=== PATIENT | male | born 1975 | race Caucasian/White ===

== ENCOUNTER 2019-12-12 05:37 | Outpatient (CLI) | payer OTHER ==
[~2019-12-12] VITALS: Ht 175 cm; Wt 79.5 kg
[2019-12-12] MEDS ORDERED: IBUP-1780 PO (13:07)
== END 2019-12-12 13:15 | disposition home or self-care (01) ==
LOC: PREOP 05:37
PROVIDERS: ATTEND Surgery
DX: Z01.818 Encounter for other preprocedural examination (principal)

== ENCOUNTER 2019-12-20 05:58 | Day surgery (SDC) | payer OTHER ==
[2019-12-20] VITALS (10 sets, daily range): BP systolic 106–132; BP diastolic 64–92
[~2019-12-20] VITALS: Ht 175 cm; Wt 79.5 kg
[~2019-12-20 05:58] MED LIST: IBUP-1780 PO
[2019-12-20] MEDS ORDERED: ceFAZolin INJECTION 1,000 MG in WATER (STERILE) FOR INJECTION 10 ML IV ONE (06:30)
[2019-12-20 06:38] LABS: BASOPHILS % (AUTO) 1 % (0-10); EOSINOPHILS # (AUTO) 0.2 10^3/uL (0.0-0.3); EOSINOPHILS % (AUTO) 3 % (0-10); HEMATOCRIT 42 % (40-54); HEMOGLOBIN 15.1 G/DL (13.3-17.7); LYMPHOCYTES # (AUTO) 1.7 X 10^3 (1.0-4.0); LYMPHOCYTES % (AUTO) 26 % (12-44); MEAN CORPUSCULAR HEMOGLOBIN 32 PG (25-34); MEAN CORPUSCULAR HGB CONC 36 G/DL (32-36); MEAN CORPUSCULAR VOLUME 90 FL (80-99); MEAN PLATELET VOLUME 10.4 FL (7.4-10.4); MONOCYTES # (AUTO) 0.6 X 10^3 (0.0-1.0); MONOCYTES % (AUTO) 9 % (0-12); NEUTROPHILS # (AUTO) 3.8 X 10^3 (1.8-7.8); NEUTROPHILS % (AUTO) 61 % (42-75); PLATELET COUNT 219 10^3/uL (130-400); RED CELL DISTRIBUTION WIDTH 11.9 % (10.0-14.5); WHITE BLOOD COUNT 6.3 10^3/uL (4.3-11.0)
[2019-12-20] MEDS ORDERED: CATHETER FLUSH 10 ML SYR IV PRN (07:00)
[2019-12-20] MEDS ORDERED: proPOfol 200 MG/20 ML (DIPRIVAN) VIAL IV ONE (07:07)
[2019-12-20] MEDS ORDERED: MIDAZOLAM 2 MG/2 ML (VERSED) VIAL ONE (07:07)
[2019-12-20] MEDS ORDERED: fentaNYL INJECTION 100 MCG/2 ML AMP ONE (07:07)
[2019-12-20] MEDS ORDERED: LIDOCAINE PF 2% 5 ML (XYLOCAINE) VIAL ONE (07:07)
[2019-12-20] MEDS ORDERED: SEVOFLURANE (ULTANE) 15 ML INHAL SOLN ONE ×5 (07:09→09:38)
[2019-12-20] MEDS ORDERED: DEXAMETHASONE 10 MG/ML (DECADRON) 1 ML VIAL ONE (07:09)
[2019-12-20] MEDS ORDERED: ONDANSETRON 4 MG/2 ML (SDV) Z0FRAN ONE (07:09)
[2019-12-20] MEDS ORDERED: ROCURONIUM 10 MG/ML 5 ML SYRINGE IV ONE (07:09)
[2019-12-20] MEDS ORDERED: BUP/EPI 0.5% 1:200,000 (SENSORCAINE) 30 ML VIAL ONE ×2 (07:13→08:50)
[2019-12-20] MEDS: LACTATED RINGERS 1,000 ML IV PRN ×2 (07:45→09:46)
--- NOTE | 2019-12-20 08:01 | Progress Note-Pre Operative ---
Pre-Operative Progress Note H&P Reviewed The H&P was reviewed, patient examined and no changes noted. Date Seen by Provider: Dec 20, 2019 Time Seen by Provider: 07:42 Date H&P Reviewed: Dec 20, 2019 Time H&P Reviewed: 07:42 Pre-Operative Diagnosis: umbilical, right inguinal hernia CASE TAVARES DO Dec 20, 2019 08:01
--- NOTE | 2019-12-20 09:53 | Progress Note-Post Operative ---
Post-Operative Progess Note Surgeon (s)/Reinforcing Bar Setter (s) Surgeon CASE TAVARES DO Reinforcing Bar Setter: Dr. Tucker to assist in retraction dissection and closure. Pre-Operative Diagnosis umbilical, right inguinal hernia Post-Operative Diagnosis incarcerate umbilical hernia, right inguinal hernia, right cord lipoma Procedure & Operative Findings Date of Procedure 12/20/19 Procedure Performed/Findings lap incarcerated umbilical hernia repair, open right inguinal hernia repair with mesh and excision of cord lipoma. PROCEDURE: lap incarcerated umbilical hernia repair, open right inguinal hernia repair with mesh and excision of cord lipoma. COMPLICATIONS: None. INDICATIONS: The patient is a 44, male with an umbilical and right inguinal hernia, which has continued to increase in size and cause discomfort. The patient was explained the risk and benefits of the procedure and wished to proceed with the procedure. Consent was signed on the chart. DESCRIPTION OF PROCEDURE: The patient was taken into the operating suite, prepped and draped in sterile fashion. Surgical pause was performed. Local anesthetic was infiltrated in left upper quadrant. A 11 blade scalpel was used to make a small skin incision. Cautery was used to dissect down to the fascia, which was then scored and divided the muscle, went through the posterior sheath and a balloon trocar was inserted into the abdomen. The abdomen was then insufflated. Incarcerated umbilical hernia and right inguinal hernia is present. A 5 mm trocar was placed in the right lower quadrant and a 5 mm trocar was placed in left lower quadrant. Using cautery and endoscisors the umbilical hernia contents were dissecetd free and removed. 4.5 inch Echo Ventralight mesh was then inserted in the abdomen grabbed through the stab incision. The balloon was inflated on the mesh. Circumferential tacks were placed with a SecureStrap Tacker. The balloon was then removed and inner crown was created as well. The mesh was tacked with pressure being decreased. The 12 mm fascial defect was then closed using 0 Vicryl. The abdomen was then desufflated,the trocars were removed. The skin was then closed using 4-0 Monocryl in a running subcuticular fashion. Local anesthetic was infiltrated in the right lower quadrant. Incision was made and cautery used to dissect down to the external oblique, which was then opened down through the external ring. The spermatic cord was then dissected around. A Tulio drain was placed around it and there was no direct defect present. A indirect hernia present and cord lipoma. which was then dissected off of spermatic cord. The hernia sac opened and had fat that was incorporated into sac and could not be dissected off. The sac was then closed with vicryl and the sac and contents were reduced back into the abdominal cavity and the defect was closed with 0- vicryl. Using ProGrip mesh, this was secured at Lit's ligament and then incorporated around the spermatic cord and placed under the external oblique. Hemostasis was achieved. Wound irrigated and suctioned. The external oblique was then closed recreating the external ring and then the subcutaneous tissues were then reapproximated using 3-0 Vicryl and skin was then closed using 4-0 Monocryl in a subcuticular fashion. The abdomen was then washed and dried and Skin Affix was placed over the incision. The patient tolerated procedure well without any complications and taken to recovery room in stable condition. Anesthesia Type gen Estimated Blood Loss Estimated blood loss (mL): min Specimens/Packing Specimens Removed umbilical hernia contents CASE TAVARES DO Dec 20, 2019 09:53
[2019-12-20] MEDS ORDERED: DOCU-143 PO (09:56)
[2019-12-20] MEDS ORDERED: HYDR-34 PO (09:56)
--- NOTE | 2019-12-20 09:57 | Discharge Inst-Simple/Standard ---
Discharge Inst-Standard Discharge Medications New, Converted or Re-Newed RX: RX on Chart Patient Instructions/Follow Up Plan of Care/Instructions/FU: 2-3 weeks Jackie Activity as Tolerated: No Discharge Diet: Regular Diet Other Inst to Patient Follow up Appt: Make appointment for 2 week. Instructions: No lifting greater than 10 pounds. No strenuous activity. May shower in 24 hours, no tub bath or soaking. Use incentive spirometer at home as directed. No Smoking Skin/Wound Care: You have special glue over your incisions that will fall off on it's own. Symptoms to Report: Appetite Changes, Extremity Discoloration, Numbness/Tingling, Swelling Increased, Bleeding Excessive, Eyesight Changes, Pain Increased, Urine Color Change, Constipation(Persistent), Fever over 101 degree F, Pain/Pressure in chest, Urinating Difficulty, Cough Up/Vomit Blood, Heart Beat Irreg/Pounding, Pain/Pressure in jaw, Vaginal Bleeding Increase, Cramps in feet or legs, Lightheadedness, Pain/Pressure in shoulder, Diarrhea(Persistent), Memory Changes Suddenly, Questions/Concerns, Weight gain consecutive days, Dizziness/Fainting, Nausea/Vomiting, Shortness of Breath, Weight gain over 2 pounds If questions or concerns contact your physician Or seek help at emergency department. CASE TAVARES DO Dec 20, 2019 09:57
[2019-12-20] MEDS ORDERED: morphine INJ 10 MG/ML 1ML (SYR OR VIAL) IVP ONE (10:00)
[2019-12-20] MEDS ORDERED: ONDANSETRON 4 MG/2 ML (SDV) Z0FRAN IVP PRN (10:00)
[2019-12-20] MEDS ORDERED: MEPERIDINE (DEMEROL) INJ 50 MG/ML IVP ONE (10:00)
[2019-12-20] MEDS ORDERED: HYDROcodone/APAP 7.5 MG/325 MG (LORTAB, LORCET PLUS) TABLET PO ONE ×2 (12:15→12:18)
[2019-12-20] MEDS ORDERED: HYDR-4227 PO (15:29)
--- NOTE | 2019-12-20 15:34 | Progress Note ---
Progress Note Assessment/Plan Date Seen by Provider: Dec 20, 2019 Time Seen by Provider: 15:32 Events since last exam I have not seen this patient,, Dr. Mejia called to report that he had operated on this patient this morning, inadvertently forgot to sign the hydrocodone 7.5/325 prescription quantity of 30. He is unable to E prescribe as he has not yet been signed up for that. As such I transmitted a prescription for the aforementioned medication to [facility] pharmacy for Frannie on Dr. Mejia's behalf. Assessment/Plan As above Vitals Last set of Vitals Signs Vital Signs Date Time Temp Pulse Resp B/P (MAP) Pulse Ox O2 Delivery O2 Flow Rate FiO2 12/20/19 12:30 36.3 80 18 117/86 98 Room Air 0.00 Labs Laboratory Tests 12/20/19 06:30: White Blood Count 6.3, Red Blood Count 4.72, Hemoglobin 15.1, Hematocrit 42, Mean Corpuscular Volume 90, Mean Corpuscular Hemoglobin 32, Mean Corpuscular Hemoglobin Concent 36, Red Cell Distribution Width 11.9, Platelet Count 219, M wilver Platelet Volume 10.4, Neutrophils (%) (Auto) 61, Lymphocytes (%) (Auto) 26, Monocytes (%) (Auto) 9, Eosinophils (%) (Auto) 3, Basophils (%) (Auto) 1, Neutrophils # (Auto) 3.8, Lymphocytes # (Auto) 1.7, Monocytes # (Auto) 0.6, Eosinophils # (Auto) 0.2, Basophils # (Auto) 0.0 STEPHANIA HOOKS APRN Dec 20, 2019 15:34
--- NOTE | 2019-12-24 08:04 | Anesthesia-General Post-Op ---
General Significant Intra-Op Events Notes addendum 3 at 1015 Patient Condition Mental Status/LOC: Same as Preop Cardiovascular: Satisfactory Nausea/Vomiting: Absent Respiratory: Satisfactory Pain: Controlled Complications: Absent Post Op Complications Complications None Follow Up Care/Instructions Patient Instructions None needed. Anesthesia/Patient Condition Patient Condition Patient is doing well, no complaints, stable vital signs, no apparent adverse anesthesia problems. No complications reported per nursing. LUIS PALMA CRNA Dec 24, 2019 08:04
--- OUTSIDE RECORDS SUMMARY | 2019-12-24 12:26 | XMS REPORT | Continuity of Care Document ---
Author Organization Unknown Address Unknown Phone Unavailable Allergies Active Description Code Type Severity Reaction Onset Reported/Identified Relationship to Patient Clinical Status Yes No Known Drug Allergies [id number] Drug Allergy Unknown N/A 12/12/2019 Medications There is no data. Problems Date Dx Coded Attending Type Code Diagnosis Diagnosed By 12/13/2019 CASE TAVARES DO Ot Z01.818 ENCOUNTER FOR OTHER PREPROCEDURAL EXAMIN Procedures There is no data. Results Test Result Range Complete blood count (CBC) with automate d white blood cell (WBC) differential - 12/20/19 06:30 Blood leukocytes automated count (number/volume) 6.3 10*3/uL 4.3-11.0 Blood erythrocytes automated count (number/volume) 4.72 10*6/uL 4.35-5.85 Venous blood hemoglobin measurement (mass/volume) 15.1 g/dL 13.3-17.7 Blood hematocrit (volume fraction) 42 % 40-54 Automated erythrocyte mean corpuscular volume 90 [ foz_us] 80-99 Automated erythrocyte mean corpuscular h emoglobin (mass per erythrocyte) 32 pg 25-34 Automated erythrocyte mean corpuscular h emoglobin concentration measurement (mass/volume) 36 g/dL 32-36 Automated erythrocyte distribution width ratio 11. 9 % 10.0- 14.5 Automated blood platelet count (count/volume) 219 10*3/uL 130-400 Automated blood platelet mean volume measurement 10.4 [foz_us] 7.4-10.4 Automated blood neutrophils/100 leukocytes 61 % 42-75 Automated blood lymphocytes/100 leukocytes 26 % 12-44 Blood monocytes/100 leukocytes 9 % 0-12 Automated blood eosinophils/100 leukocytes 3 % 0-10 Automated blood basophils/100 leukocytes 1 % 0-10 Blood neutrophils automated count (number/volume) 3.8 10*3 1.8-7.8 Blood lymphocytes automated count (number/volume) 1.7 10*3 1.0-4.0 Blood monocytes automated count (number/volume) 0. 6 10*3 0.0-1.0 Automated eosinophil count 0.2 10*3/uL 0 .0-0.3 Automated blood basophil count (count/volume) 0.0 10*3/uL 0.0-0.1 Methicillin resistant Staphylococcus aur eus (MRSA) screening culture - 12/20/19 06:30 Methicillin resistant Staphylococcus aureus (MRSA) scr eening culture NEG NRG Encounters ACCT No. Visit Date/Time Discharge Status Pt. Type Provider Facility Loc./Unit Complaint [id number] 12/20/2019 05:58:00 020 12:30:00 DIS Outpatient TAVARES [facility] SDC UMBILICAL WITH RIGHT IN GUINAL HERNIA [id number] 12/12/2019 05:37:00 020 13:15:00 DIS Outpatient TAVARES CASE DOCK[facility] PREOP UMBILICAL WITH RIGHT IN GUINAL HERNIA
== END 2019-12-20 12:30 | disposition home or self-care (01) ==
LOC: SDC 05:58
PROVIDERS: ATTEND Surgery
DX: K42.0 Umbilical hernia with obstruction, without gangrene (principal); K40.90 Unilateral inguinal hernia, without obstruction or gangrene, not specified as recurrent; D17.6 Benign lipomatous neoplasm of spermatic cord; G43.909 Migraine, unspecified, not intractable, without status migrainosus; F17.210 Nicotine dependence, cigarettes, uncomplicated; Z79.899 Other long term (current) drug therapy; Z82.49 Family history of ischemic heart disease and other diseases of the circulatory system; Z83.3 Family history of diabetes mellitus
CPT/HCPCS: 36415; 85025; 87081; 88302; 88304; 94664

== ENCOUNTER → 2022-06-30 | Outpatient (CLI) | payer OTHER ==
[~2022-06-30] MED LIST changes: +DOCU-143 PO; +HYDR-34 PO; +HYDR-4227 PO
[2022-06-30 14:58] LABS: BASOPHILS # (AUTO) 0.1 10^3/uL (0.0-0.1); BASOPHILS % (AUTO) 1 % (0-10); EOSINOPHILS # (AUTO) 0.2 10^3/uL (0.0-0.3); EOSINOPHILS % (AUTO) 3 % (0-10); HEMATOCRIT 44 % (40-54); HEMOGLOBIN 15.5 g/dL (13.3-17.7); LYMPHOCYTES # (AUTO) 2.3 10^3/uL (1.0-4.0); LYMPHOCYTES % (AUTO) 31 % (12-44); MEAN CORPUSCULAR HEMOGLOBIN 31 pg (25-34); MEAN CORPUSCULAR HGB CONC 35 g/dL (32-36); MEAN CORPUSCULAR VOLUME 90 fL (80-99); MEAN PLATELET VOLUME 10.2 fL (9.0-12.2); MONOCYTES # (AUTO) 0.5 10^3/uL (0.0-1.0); MONOCYTES % (AUTO) 7 % (0-12); NEUTROPHILS # (AUTO) 4.3 10^3/uL (1.8-7.8); NEUTROPHILS % (AUTO) 58 % (42-75); PLATELET COUNT 249 10^3/uL (130-400); WHITE BLOOD COUNT 7.4 10^3/uL (4.3-11.0)
[2022-06-30 15:22] LABS: ALBUMIN 4.5 GM/DL (3.2-4.5); BILIRUBIN,TOTAL 0.3 MG/DL (0.1-1.0); CALCIUM 9.3 MG/DL (8.5-10.1); CREATININE SERUM 1.02 MG/DL (0.60-1.30); POTASSIUM 3.9 MMOL/L (3.6-5.0); TOTAL PROTEIN 7.5 GM/DL (6.4-8.2)
--- NOTE | 2022-06-30 15:23 | Diagnostic Imaging Report ---
PROCEDURE: US Gallbladder. TECHNIQUE: Multiple real-time grayscale images were obtained over the right upper quadrant in various projections. INDICATION: Abdominal pain, right upper quadrant pain. FINDINGS: There is a non shadowing 8 mm long axis hyperechoic structure adherent to the gallbladder wall, non mobile, believed to be a small polyp. No appreciable stones within the gallbladder and there is no sludge. Gallbladder is nondilated, its wall is non thickened. The Puga's sign is negative. Pancreas where visualized is unremarkable. The aorta and IVC where visualized are unremarkable. The unobstructed right kidney measured 10 cm and appeared normal. The liver appeared normal. There is no intra or extrahepatic bile duct dilatation. The portal vein is patent and showed normal hepatopetal directional flow. IMPRESSION: Likely small subcentimeter gallbladder polyp. No appreciable stone or biliary dilatation. No ascites, fluid collection, or acute-appearing abnormalities. Dictated by: Dictated on workstation # [id number]
== END ==
LOC: RAD 14:30
PROVIDERS: ATTEND Physician Assistant
DX: R10.11 Right upper quadrant pain (principal)
CPT/HCPCS: 36415; 76705; 80053; 82150; 83690; 85025

== ENCOUNTER → 2022-07-12 | Outpatient (CLI) | payer OTHER ==
[~2022-07-12] MED LIST changes: +CATHETER FLUSH 10 ML SYR IV PRN; +IOHEXOL 350 MG/ML 100 ML (OMNIPAQUE 350) VIAL IV ONE; +NS 100 ML (IVPB) BAG IV ONE
--- NOTE | 2022-07-12 16:01 | Diagnostic Imaging Report ---
PROCEDURE: CT abdomen and pelvis with contrast. TECHNIQUE: Multiple contiguous axial images were obtained through the abdomen and pelvis after administration of intravenous contrast. Auto Exposure Controls were utilized during the CT exam to meet ALARA standards for radiation dose reduction. All CT scans use one or more of the following dose optimizing techniques: Automated exposure control, MA and/or KvP adjustment based on patient size and exam type or iterative reconstruction. INDICATION: Abdominal pain. FINDINGS: No focal hepatic, gallbladder, pancreatic, adrenal gland, or splenic abnormality is identified. The kidneys are unremarkable in appearance. There is a focal defect in the anterior abdominal wall slightly to the right of midline just above the umbilicus. There is protrusion of omental fat with defect measuring approximately 1 cm in diameter. There is no bowel hernia or obstruction. The appendix has a normal appearance. Unopacified bladder is unremarkable. Surgical findings are seen in the right inguinal region. IMPRESSION: Small anterior abdominal wall defect with protrusion of omental fat. There is no bowel hernia or obstruction, and no other focal acute abnormality is seen in the abdomen or pelvis. Dictated by: Dictated on workstation # [id number]
== END ==
LOC: RAD 13:42
PROVIDERS: ATTEND Physician Assistant
DX: R10.9 Unspecified abdominal pain (principal); R19.00 Intra-abdominal and pelvic swelling, mass and lump, unspecified site
CPT/HCPCS: 74177

== ENCOUNTER 2022-08-05 05:40 | Outpatient (CLI) | payer OTHER ==
[~2022-08-05] VITALS: Ht 172.7 cm; Wt 74.8 kg
[~2022-08-05 05:40] MED LIST changes: -CATHETER FLUSH 10 ML SYR IV PRN; -IOHEXOL 350 MG/ML 100 ML (OMNIPAQUE 350) VIAL IV ONE; -NS 100 ML (IVPB) BAG IV ONE
[2022-08-05] MEDS ORDERED: IBUP-1773 PO (13:10)
[2022-08-05] MEDS ORDERED: DIPH25TA65 PO (13:10)
== END 2022-08-05 13:14 | disposition home or self-care (01) ==
LOC: PREOP 05:40
PROVIDERS: ATTEND Surgery
DX: Z01.818 Encounter for other preprocedural examination (principal)

== ENCOUNTER 2022-08-12 06:49 | Day surgery (SDC) | payer OTHER ==
[~2022-08-12] VITALS: Ht 172.7 cm; Wt 74.8 kg
[2022-08-12] VITALS (11 sets, daily range): BP systolic 110–118; BP diastolic 72–84
[~2022-08-12 06:49] MED LIST changes: +DIPH25TA65 PO; +IBUP-1773 PO
[2022-08-12] MEDS ORDERED: ceFAZolin INJECTION 2,000 MG in NS (IVPB) 50 ML IV ONE (07:15)
[2022-08-12] MEDS: LACTATED RINGERS 1,000 ML IV PRN ×2 (07:16→10:15)
[2022-08-12] MEDS ORDERED: LIDOCAINE/EPI 1%-1:100,000 (XYLOCAINE) 10 ML ONE (07:30)
[2022-08-12] MEDS ORDERED: proPOfol 200 MG/20 ML (DIPRIVAN) VIAL IV ONE (07:32)
[2022-08-12] MEDS ORDERED: MIDAZOLAM 2 MG/2 ML (VERSED) VIAL ONE (07:32)
[2022-08-12] MEDS ORDERED: ONDANSETRON 4 MG/2 ML (SDV) Z0FRAN ONE (07:32)
[2022-08-12] MEDS ORDERED: LIDOCAINE PF 2% 5 ML (XYLOCAINE) VIAL ONE (07:32)
[2022-08-12] MEDS ORDERED: fentaNYL INJ 100 MCG/2 ML AMP ONE (07:32)
[2022-08-12] MEDS ORDERED: ROCURONIUM 10 MG/ML 5 ML SYRINGE IV ONE ×2 (07:32→10:08)
[2022-08-12] MEDS ORDERED: LIDOCAINE/EPI 1%-1:100,000 (XYLOCAINE) 10 ML IJ ONE (08:00)
--- NOTE | 2022-08-12 08:02 | Progress Note-Pre Operative ---
Pre-Operative Progress Note Date of Available H&P: Jul 28, 2022 Date H&P Reviewed: Aug 12, 2022 Time H&P Reviewed: 08:02 History & Physical: H&P Reviewed, Patient Examed, No changes noted Pre-Operative Diagnosis: incisional hernia CASE TAVARES DO Aug 12, 2022 08:02
[2022-08-12] MEDS ORDERED: NEOSTIGMINE (BLOXIVERZ ) 1 MG/1ML 10 ML VIAL ONE (10:32)
[2022-08-12] MEDS ORDERED: GLYCOPYRROLATE 0.2 MG/ML (ROBINUL) 2 ML VIAL ONE (10:32)
[2022-08-12] MEDS ORDERED: KETOROLAC 30 MG/ML VIAL ONE (10:33)
[2022-08-12] MEDS ORDERED: SEVOFLURANE (ULTANE) 15 ML INHAL SOLN ONE (10:47)
[2022-08-12] MEDS ORDERED: ACHD5005 PO (10:54)
--- NOTE | 2022-08-12 10:56 | Discharge Inst-Simple/Standard ---
Discharge Inst-Standard Discharge Medications New, Converted or Re-Newed RX: Transmitted to Pharmacy Patient Instructions/Follow Up Plan of Care/Instructions/FU: 2 weeks Jackie Activity as Tolerated: No Discharge Diet: Regular Diet Other Inst to Patient Follow up Appt: Make appointment for 2 week. Instructions: No lifting greater than 10 pounds. No strenuous activity. May shower in 24 hours, no tub bath or soaking. Use incentive spirometer at home as directed. No Smoking Skin/Wound Care: You have special glue over your incision that will fall off on it's own. Symptoms to Report: Appetite Changes, Extremity Discoloration, Numbness/Tingling, Swelling Increased, Bleeding Excessive, Eyesight Changes, Pain Increased, Urine Color Change, Constipation(Persistent), Fever over 101 degree F, Pain/Pressure in chest, Urinating Difficulty, Cough Up/Vomit Blood, Heart Beat Irreg/Pounding, Pain/Pressure in jaw, Vaginal Bleeding Increase, Cramps in feet or legs, Lightheadedness, Pain/Pressure in shoulder, Diarrhea(Persistent), Memory Changes Suddenly, Questions/Concerns, Weight gain consecutive days, Dizziness/Fainting, Nausea/Vomiting, Shortness of Breath, Weight gain over 2 pounds If questions or concerns contact your physician Or seek help at emergency department. CASE TAVARES DO Aug 12, 2022 10:56
[2022-08-12] MEDS ORDERED: HYDROmorphone 2 MG/ML VIAL (DILAUDID) IV ONE (11:00)
[2022-08-12] MEDS ORDERED: morphine INJ 10 MG/ML 1ML (SYR OR VIAL) IVP ONE (11:00)
[2022-08-12] MEDS ORDERED: ONDANSETRON 4 MG/2 ML (SDV) Z0FRAN IVP PRN (11:00)
[2022-08-12] MEDS ORDERED: PROMETHAZINE INJ 25 MG/ML (PHENERGAN) AMP IVP ONE (11:00)
[2022-08-12] MEDS ORDERED: MEPERIDINE (DEMEROL) INJ 50 MG/ML IVP ONE (11:00)
[2022-08-12] MEDS ORDERED: HYDROcodone/APAP 5 MG/325 MG (LORTAB) TAB ONE (12:15)
[2022-08-12] MEDS: HYDROcodone/APAP 5 MG/325 MG (LORTAB) TAB PO ONE (12:24)
[2022-08-12] MEDS ORDERED: HYDROcodone/APAP 5 MG/325 MG (LORTAB) TAB PO ONE (12:45)
--- NOTE | 2022-08-12 13:29 | Anesthesia-General Post-Op ---
General Patient Condition Mental Status/LOC: Same as Preop Cardiovascular: Satisfactory Nausea/Vomiting: Absent Respiratory: Satisfactory Pain: Controlled Complications: Absent Post Op Complications Complications None Follow Up Care/Instructions Patient Instructions None needed. Anesthesia/Patient Condition Patient Condition Patient is doing well, no complaints, stable vital signs, no apparent adverse anesthesia problems. No complications reported per nursing. GUILLERMO MCCLAIN CRNA Aug 12, 2022 13:29
--- NOTE | 2022-08-12 22:35 | OPERATIVE REPORT ---
DATE OF SERVICE: 08/12/2022 PREOPERATIVE DIAGNOSIS: Incisional hernia. POSTOPERATIVE DIAGNOSIS: Recurrent incisional hernia. PROCEDURE: Robotic recurrent incarcerated incisional hernia repair, primary repair. SURGEON: Case Mejia DO BRAKE REPAIRER AIR: Dr. Tucker, assisted in retraction, dissection and closure. ANESTHESIA: General. ESTIMATED BLOOD LOSS: Minimal. COMPLICATIONS: None. INDICATIONS: The patient is a 46-year-old male, who has incisional hernia, recurrent. He understands risks and benefits of procedure and wishes to proceed. Consent was signed in the chart. DESCRIPTION OF PROCEDURE: The patient was taken to the operating suite, was prepped and draped in sterile fashion. Timeout was performed. Local anesthetic was infiltrated in left upper quadrant. An 11 blade scalpel was used to make a small skin incision. Cautery was used to dissect down to the anterior fascia, which was then scored, the muscle was divided. The posterior fascia was divided and the abdomen was then entered. A lantigua trocar was inserted. Pneumoperitoneum was achieved. Under direct visualization of the laparoscope, 8 mm trocar was placed in left lower quadrant and then triangulating a third 8 mm trocar was placed as well. The robot was then docked. Scissors were began using take down adhesions that were up to the mesh. These were taken down. There was herniation of the falciform under the mesh into the hernia. This was incarcerated, which we began with scissors and a bipolar forceps to be reduced and dissected around until completely removed. The falciform was taken down and at this point, we using 0 V-Loc permanent suture, the mesh was secured to the anterior fascia closing the defect. The robot was then undocked. The trocars were removed. The 12 mm fascial defect was then closed with 0 Vicryl in a [id number] fashion. Skin was then closed using 4-0 Monocryl in a subcuticular fashion. The abdomen was then washed and dried and Skin Affix was placed over the incisions. The patient tolerated procedure well without any complications. He was taken to recovery room in stable condition. Job ID: [id number] DocumentID: [id number] Dictated Date: 08/12/2022 16:29:15 Ct Technician Date: 08/12/2022 22:34:30 Dictated By: CASE MEJIA DO
== END 2022-08-12 12:55 | disposition home or self-care (01) ==
LOC: SDC 06:49
PROVIDERS: ATTEND Surgery
DX: K43.0 Incisional hernia with obstruction, without gangrene (principal); K66.0 Peritoneal adhesions (postprocedural) (postinfection)
CPT/HCPCS: 87081